=== PATIENT | male | born 1940 | race Caucasian/White ===

== ENCOUNTER 2016-12-21 22:06 | Emergency (ER) | payer MEDICARE, OTHER ==
--- NOTE | ~2016-12-21 | ER ---
PATIENT'S NAME: HENRIQUE HANSEN [facility] AGE: 76 Y [address] ROOM: [place] [address] LOCATION: [facility] ADMIT DATE: 12/21/2016 ER/Outpatient Report DISCHARGE DATE: 12/22/2016 FAMILY PHYSICIAN: Enoch Keys MD ATTENDING PHYSICIAN: Jacobo Whaley Admission date and time documented on the medical record. I saw the patient at 2215 hours. CHIEF COMPLAINT: Elevated blood pressure. HISTORY OF PRESENT ILLNESS: The patient is a 76-year-old male, who comes in with elevated blood pressure. No complaints of headache, visual or auditory changes, lateralizing weakness, numbness, tingling, or loss of function. No nausea, vomiting, diarrhea, or abdominal pain. No chest pain or shortness of breath. No lightheadedness, dizziness, syncope, or near syncope. No fall or trauma. No recent colds, coughs, flus, fever, chills, or sweats. Does have a past history of lymphoma and hypertension, otherwise, his health history has been negative. No history of strokes, TIAs, or seizure disorder. No endocrine problems with diabetes or thyroid disease. No psych issues. No joint or muscle swelling, redness, or pain. No skin eruptions or rash. No urinary symptoms. HOME MEDICATIONS: See attached medication list. ALLERGIES: NONE. SOCIAL HISTORY: Nonsmoker, occasional intake of alcohol. SIGNIFICANT PAST MEDICAL HISTORY: Hypertension, lymphoma. OPERATIONS: Chemotherapy, appendectomy, cholecystectomy. REVIEW OF SYSTEMS: All systems reviewed by me are negative with the exception of those discussed in the history of present illness. PHYSICAL EXAMINATION: VITAL SIGNS: Temperature 98.7 tympanic, pulse 108, respirations 16, blood PATIENT'S NAME: HENRIQUE HANSEN [facility] AGE: 76 Y [address] ROOM: [place] [address] LOCATION: [facility] ADMIT DATE: 12/21/2016 ER/Outpatient Report DISCHARGE DATE: 12/22/2016 FAMILY PHYSICIAN: Enoch Keys MD ATTENDING PHYSICIAN: Jacobo Whaley pressure 227/131, O2 saturation on room air is 99%. HEAD: Normocephalic. EYES: Extraocular muscles intact. PERRL. Fundi benign. EARS: Clear TMs bilaterally. NOSE AND THROAT: Clear. Mucous membranes moist. Teeth and jaw intact. NECK: No nuchal rigidity. No thyromegaly or cervical adenopathy. No carotid bruits. LUNGS: Clear. No rales, rhonchi, or wheezes. HEART: Regular, occasional ectopic. Pulses palpable. No chest wall or ribcage pain to palpation. ABDOMEN: Soft, nondistended, nontender. Good bowel tones. No organomegaly or abnormal mass palpable. EXTREMITIES: Intact. NEUROVASCULAR: Intact. SKIN: Clear. No skin eruptions or rash. LABORATORY DATA AND X-RAYS: EKG showed sinus rhythm with ectopics. No acute ST elevation, ischemic change, or arrhythmia. Chest x-ray showed no acute infiltrate or changes. We will review x-ray with radiologist. LABORATORY DATA: CMS was normal except for a slight low potassium 3.5, elevated glucose 115, magnesium 1.7. CPK was normal x2 two hours apart. Gsjxr-so-gthz cardiac enzymes were normal x2 two hours apart. White count 7500, 63 segs, 28 lymphs, 7 monos, 1 eo, 1 baso. Hemoglobin 13.5, hematocrit 39.6, platelet count was 192,000. PTT was 29, pro-time was 10 with an INR of 1. IMPRESSION: Hypertension urgency. PLAN: The patient was given clonidine 0.2 mg orally in the emergency room. Blood pressure came down to 181/96. Discharged the patient home. Observation. Activity as tolerated. Continue present home medications and care. Fluids and diet as tolerated. Follow up with his personal physician or his personal physician's partners in [facility] for followup exam tomorrow. Discussion ensued with the patient concerning my findings and recommendations, he understands. JACOBO WHALEY MD PATIENT'S NAME: HENRIQUE HANSEN [facility] AGE: 76 Y [address] ROOM: [place], [place] [address] LOCATION: [facility] ADMIT DATE: 12/21/2016 ER/Outpatient Report DISCHARGE DATE: 12/22/2016 FAMILY PHYSICIAN: Enoch Keys MD ATTENDING PHYSICIAN: Jacobo Whaley SDS/modl /[id number] d: 12/22/16 0209 t: 12/22/16 1811, OUTPATIENT REPORT
[2016-12-21 22:51] LABS: BASOPHIL % 0.5 %; EOSINOPHIL # 0.1 K/uL (0.0-0.5); EOSINOPHIL % 0.9 %; HEMATOCRIT 39.6 % (37.0-53.0); HEMOGLOBIN 13.5 g/dL (11.0-16.0); IMMATURE GRANULOCYTE % 0.3 %; LYMPHOCYTE # 2.1 K/uL (0.8-4.0); LYMPHOCYTE % 28.2 %; MCH 29.2 pg (27.0-34.0); MCHC 34.1 gm/dL (32.0-36.5); MCV 85.5 fl (83.0-98.0); MONOCYTE # 0.5 K/uL (0.0-1.0); MPV 9.5 fl (9.4-12.4); NEUTROPHIL # (ANC) 4.7 K/uL (1.4-9.0); NEUTROPHIL % 63.1 %; NRBC % 0 /100WBC (0-0.00); PLATELET COUNT 192 K/uL (150-450); RBC 4.63 M/uL (3.50-5.50); RDW-CV 12.5 % (11.9-14.6); WBC 7.5 K/uL (4.0-11.0)
[2016-12-21 23:02] LABS: PTT 29 SECONDS (25-32)
[2016-12-21 23:11] LABS: ALBUMIN 3.7 gm/dL (3.5-5.0); ALK PHOS 66 IU/L (33-138); ALT 21 IU/L (12-78); ANION GAP 15.5 (10.0-19.0); AST 21 IU/L (10-40); BLOOD UREA NITROGEN 15 mg/dL (6-24); CALCIUM 8.6 mg/dL (8.5-10.5); CHLORIDE 98 mMol/L (96-110); CO2 25 mMol/L (22-32); CPK 121 IU/L (35-332); CREATININE 1.2 mg/dL (0.6-1.3); ESTIMATED GFR (MDRD EQUATION) 59; MAGNESIUM 1.7 mg/dL (1.3-2.6); POTASSIUM 3.5 mMol/L (3.7-5.1); SODIUM 135 mMol/L (135-145); TOTAL BILIRUBIN 0.3 mg/dL (0.0-1.5); TOTAL PROTEIN 7.4 g/dL (6.0-8.4)
== END 2016-12-22 01:30 | disposition disaster alternative care site (69) ==
LOC: GMED 22:06
PROVIDERS: Emergency Medicine
DX: I16.0 Hypertensive urgency (principal); Z90.49 Acquired absence of other specified parts of digestive tract
CPT/HCPCS: A9270